=== PATIENT | female | born 1995 | race Caucasian/White ===

== ENCOUNTER 2016-09-26 11:45 | Emergency (ER) | payer OTHER ==
[~2016-09-26] VITALS: Ht 157.5 cm; Wt 44.6 kg
[2016-09-26 11:52] VITALS: TEMP 36.6; Ht 157.5 cm; Wt 44.6 kg
[2016-09-26] MEDS ORDERED: ALBUT/IPRATROP 3MG/0.5MG NEB 3 ML VIAL INH STA (12:29)
[2016-09-26] MEDS ORDERED: SODIUM CHLORIDE 0.9% 1000ML 1,000 ML IV STA (12:47)
[2016-09-26] MEDS ORDERED: NAPR1TAB9 PO (12:58)
--- NOTE | 2016-09-26 13:08 | EMERGENCY ROOM VISIT NOTE ---
History Report prepared by Romain: Asya Varghese Under the Supervision of: Dr. Roxanne Owusu M.D. First contact with patient: 12:39 Chief Complaint: SHORTNESS OF BREATH Stated Complaint: SOB,DIZZY History of Present Illness The patient is a 20 year old female who presents to the Emergency Room with complaints of persistent SOB for the past 2 weeks. She also reports coughing and wheezing. She has been using her boyfriend's nebulizer. She felt dizzy and lightheaded this morning. She vomited 10 times this morning over a period of 3 hours. She denies any fever or vaginal bleeding today. She has gained 2 lbs recently which is unusual for her. Her breasts have also been sore. Her last 2 periods have been short and light. She has dysmenorrhea and usually has long periods with a lot of cramping. These symptoms led her to have some suspicions of . She did an at home test 3 weeks ago which was negative. She has had an ectopic before when she was 16. She has a history of asthma and bronchitis. She is a smoker. Source of History: patient Onset: 2 weeks Position: other (respiratory) Quality: other (SOB) Timing: other (persistent) Associated Symptoms: + vomiting, No fevers Note: Pt reports lightheadedness, dizziness, weight gain. Pt denies vaginal bleeding. Review of Systems See HPI for pertinent positives & negatives. A total of 10 systems reviewed and were otherwise negative. Past Medical & Surgical Medical Problems: (1) Asthma (2) Scoliosis Surgical Problems: (1) S/P tonsillectomy and adenoidectomy (2) [place] teeth removed Family History Diabetes mellitus Social History Smoking Status: Current Every Day Smoker Alcohol Use: none Drug Use: none Marital Status: in relationship Housing Status: lives with significant other Occupation Status: employed Current/Historical Medications Scheduled Naproxen (Aleve), 220 MG PO UD Allergies Coded Allergies: Latex (Verified Allergy, Unknown, UNKNOWN, 09/26/16) Beason (Verified Allergy, Unknown, ANAPHYLAXIS, 09/26/16) Physical Exam Vital Signs Date Time Temp Pulse Resp B/P Pulse Ox O2 Delivery O2 Flow Rate FiO2 09/26/16 14:45 93 18 132/84 98 09/26/16 13:20 97 Room Air 09/26/16 13:18 97 Room Air 09/26/16 11:52 36.6 96 18 127/91 97 Room Air Physical Exam Vital signs reviewed. General: Well-appearing, thin, in no significant distress. HEENT: No scleral icterus, PERRLA, neck supple. Atraumatic. Cardiovascular: Regular rate and rhythm, no extra sounds. Pulmonary: Wheezing in the bilateral lung lennon, normal work of breathing. Abdomen: Soft, nontender, nondistended, positive bowel sounds. Musculoskeletal: Atraumatic, no peripheral edema. Neurologic: Patient awake alert and oriented x 3, full strength in all 4 extremities. Cranial nerves 2 through 12 grossly intact. Skin: Warm to touch, dry, no rash Medical Decision & Procedures ER Provider Diagnostic Interpretation: X-ray results as stated below per interpretation by me and the radiologist. Radiology results as stated below per my review and radiologist interpretation: CHEST ONE VIEW PORTABLE CLINICAL HISTORY: Shortness of breath. COMPARISON STUDY: Chest radiograph September 02, 2014. FINDINGS: Lung volumes are normal. There is no pneumothorax or pleural effusion. Cardiac size is normal. Mediastinal contours are normal. There is no evidence of pulmonary edema. IMPRESSION: No acute cardiopulmonary findings. Electronically signed by: Jean Marie Schroeder M.D. 09/26/2016 1:07 PM Dictated Date/Time: 09/26/2016 1:06 PM <14 WKS SINGLE ULTRASOUND CLINICAL HISTORY: , unsure of dates. Short of breath. Dizzy. COMPARISON STUDY: None. FINDINGS: The uterus measures 7.3 x 4.4 x 3.3 cm. Endometrial stripe measures 9 mm in thickness. No intrauterine gestational sac identified. The ovaries are normal in size and demonstrate normal color flow. Small amount of pelvic free fluid. There are 2 cysts within the left ovary. This includes a 2.5 cm simple cyst and a 2.4 cm complex cyst with internal echoes. This demonstrates complex fluid and internal septations suggestive of a hemorrhagic cyst. No additional adnexal masses identified. IMPRESSION: 1. No intrauterine gestational sac identified. 2. No adnexal masses. 3. Left ovarian cysts as described above. 4. Therefore, in the setting of a positive test this could represent an early intrauterine , nonvisualized ectopic , or recent spontaneous . Correlation with beta-hCG and follow-up pelvic ultrasound can be performed. Electronically signed by: Clarke Lee M.D. 09/26/2016 1:56 PM Dictated Date/Time: 09/26/2016 1:51 PM Laboratory Results 09/26/16 13:15 Red Blood Count 5.08, Mean Corpuscular Volume 89.8, Mean Corpuscular Hemoglobin 32.7, Mean Corpuscular Hemoglobin Concent 36.4, Mean Platelet Volume 9.4, Neutrophils (%) (Auto) 77.5, Lymphocytes (%) (Auto) 15.8, Monocytes (%) (Auto) 3.9, Eosinophils (%) (Auto) 2.3, Basophils (%) (Auto) 0.3, Neutrophils # (Auto) 9.30, Lymphocytes # (Auto) 1.90, Monocytes # (Auto) 0.47, Eosinophils # (Auto) 0.28, Basophils # (Auto) 0.04 09/26/16 13:15 Test 09/26/16 12:30 09/26/16 13:15 Urine Test POS (NEG) White Blood Count 12.01 K/uL (4.8-10.8) Red Blood Count 5.08 M/uL (4.2-5.4) Hemoglobin 16.6 g/dL (12.0-16.0) Hematocrit 45.6 % (37-47) Mean Corpuscular Volume 89.8 fL (80-100) Mean Corpuscular Hemoglobin 32.7 pg (25-34) Mean Corpuscular Hemoglobin Concent 36.4 g/dl (32-36) Platelet Count 301 K/uL (130-400) Mean Platelet Volume 9.4 fL (7.4-10.4) Neutrophils (%) (Auto) 77.5 % Lymphocytes (%) (Auto) 15.8 % Monocytes (%) (Auto) 3.9 % Eosinophils (%) (Auto) 2.3 % Basophils (%) (Auto) 0.3 % Neutrophils # (Auto) 9.30 K/uL (1.4-6.5) Lymphocytes # (Auto) 1.90 K/uL (1.2-3.4) Monocytes # (Auto) 0.47 K/uL (0.11-0.59) Eosinophils # (Auto) 0.28 K/uL (0-0.5) Basophils # (Auto) 0.04 K/uL (0-0.2) RDW Standard Deviation 41.0 fL (36.4-46.3) RDW Coefficient of Variation 12.4 % (11.5-14.5) Immature Granulocyte % (Auto) 0.2 % Immature Granulocyte # (Auto) 0.02 K/uL (0.00-0.02) Prothrombin Time 10.9 SECONDS (9.0-12.0) Prothromb Time International Ratio 1.0 (0.9-1.1) Activated Partial Thromboplast Time 31.1 SECONDS (21.0-31.0) Partial Thromboplastin Ratio 1.2 Anion Gap 9.0 mmol/L (3-11) Est Creatinine Clear Calc Drug Dose 82.4 ml/min Estimated GFR () 130.0 Estimated GFR (Non- 112.1 BUN/Creatinine Ratio 13.2 (10-20) Calcium Level 9.1 mg/dl (8.5-10.1) Total Bilirubin 0.9 mg/dl (0.2-1) Aspartate Amino Transf (AST/SGOT) 16 U/L (15-37) Alanine Aminotransferase (ALT/SGPT) 21 U/L (12-78) Alkaline Phosphatase 67 U/L (45-117) Total Protein 8.1 gm/dl (6.4-8.2) Albumin 4.8 gm/dl (3.4-5.0) Globulin 3.3 gm/dl (2.5-4.0) Albumin/Globulin Ratio 1.5 (0.9-2) Human Chorionic Gonadotropin, Quant 492 mIU/mL Laboratory results per my review. Medications Administered Medications (Trade) Dose Ordered Sig/Lilly Route Start Time Stop Time Status Last Admin Dose Admin Albuterol/ Ipratropium 3 ml 3 ml NOW STAT INH 09/26/16 12:29 09/26/16 12:32 DC 09/26/16 12:56 3 ML Sodium Chloride (Nss 1000ml) 1,000 ml @ 999 mls/hr Q1H1M STAT IV 09/26/16 12:47 09/26/16 13:47 DC 09/26/16 12:47 999 MLS/HR Albuterol (Ventolin Hfa Inhaler) 2 puffs NOW ONCE INH 09/26/16 15:15 09/26/16 15:16 DC 09/26/16 15:14 2 PUFFS ED Course 1244: Past medical records reviewed. The patient was evaluated in room A12B. A complete history and physical examination was performed. 1229: Duoneb 3 ml INH. 1247: NSS 1000 ml @ 999 mls/hr IV. 1508: Upon reevaluation, the patient appeared to have improvement of her symptoms. I discussed findings with her. She verbalized agreement of the treatment plan. She was discharged home. Medical Decision Differential diagnosis: Etiologies such as infections, reactive airway disease, pneumonia, pneumothorax , COPD, CHF, cardiac ischemia, pulmonary embolism, musculoskeletal, gastrointestinal, intrauterine , ectopic . IV access was obtained and laboratory work was drawn. The patient was hydrated with normal saline solution. Laboratory work indicates a positive test. Patient was feeling improved after IVF. US pelvis was performed and reveals no IUP. Beta quantitative HCG was performed and is 492. Pt was informed of the findings and will establish care LYUDMILA. She was advised of the symptoms of ectopic and asked to return immediately if these happen. Pt breathing was much improved after a duoneb tx. She was given an albuterol inhaler and asked to f/u with PCP this week if possible. Impression Primary Impression: Asthma exacerbation Additional Impression: Scribe Attestation The scribe's documentation has been prepared under my direction and personally reviewed by me in its entirety. I confirm that the note above accurately reflects all work, treatment, procedures, and medical decision making performed by me. Departure Information Dispostion Home / Self-Care Referrals No Doctor, Assigned (PCP) Forms HOME CARE DOCUMENTATION FORM, IMPORTANT VISIT INFORMATION Patient Instructions My [facility] Additional Instructions Diagnosis: Vomiting, , asthma exacerbation Albuterol 2 puffs every 4 hours as needed for wheezing, cough Drink plenty of clear fluids. 1 vitamin daily. Avoid alcohol. Follow-up with FOLLOW UP SPECIALIST as soon as possible to establish care. There is no intrauterine identified at this time. This may be because the is too early. This will need to be reevaluated by your OB /LPN INSTRUCTOR. Return to the emergency department for worsening of symptoms, pelvic pain, vaginal bleeding or any medical concerns. Problem Qualifiers
[2016-09-26 13:38] LABS: BASO % 0.3 %; BASO ABS # 0.04 K/uL (0-0.2); COMPLETE YES; EOS % 2.3 %; HEMATOCRIT 45.6 % (37-47); IG% 0.2 %; LYMPH % 15.8 %; MEAN CELL VOLUME 89.8 fL (80-100); MEAN CORPUSCULAR HEMOGLOBIN 32.7 pg (25-34); MEAN CORPUSCULAR HGB CONC 36.4 g/dl (32-36); MEAN PLATELET VOLUME 9.4 fL (7.4-10.4); MONO % 3.9 %; NEUT % 77.5 %; PLATELET COUNT 301 K/uL (130-400); RED BLOOD COUNT 5.08 M/uL (4.2-5.4); WHITE BLOOD COUNT 12.01 K/uL (4.8-10.8)
[2016-09-26 13:50] LABS: PARTIAL THROMBOPLASTIN RATIO 1.2; PROTHROMBIN TIME (PATIENT) 10.9 SECONDS (9.0-12.0)
--- NOTE | 2016-09-26 13:57 | DIAGNOSTIC IMAGING REPORT ---
<14 WKS SINGLE ULTRASOUND CLINICAL HISTORY: , unsure of dates. Short of breath. Dizzy. COMPARISON STUDY: None. FINDINGS: The uterus measures 7.3 x 4.4 x 3.3 cm. Endometrial stripe measures 9 mm in thickness. No intrauterine gestational sac identified. The ovaries are normal in size and demonstrate normal color flow. Small amount of pelvic free fluid. There are 2 cysts within the left ovary. This includes a 2.5 cm simple cyst and a 2.4 cm complex cyst with internal echoes. This demonstrates complex fluid and internal septations suggestive of a hemorrhagic cyst. No additional adnexal masses identified. IMPRESSION: 1. No intrauterine gestational sac identified. 2. No adnexal masses. 3. Left ovarian cysts as described above. 4. Therefore, in the setting of a positive test this could represent an early intrauterine , nonvisualized ectopic , or recent spontaneous . Correlation with beta-hCG and follow-up pelvic ultrasound can be performed. Electronically signed by: Clarke Lee M.D. 09/26/2016 1:56 PM Dictated Date/Time: 09/26/2016 1:51 PM
[2016-09-26 14:02] LABS: BUN/CREATININE RATIO 13.2 (10-20); CALCIUM 9.1 mg/dl (8.5-10.1); CREATININE 0.76 mg/dl (0.60-1.20); POTASSIUM 3.8 mmol/L (3.5-5.1)
[2016-09-26 14:04] LABS: ALB/GLOB RATIO 1.5 (0.9-2)
[2016-09-26 14:43] LABS: PREG INTERNAL NEGATIVE QC NEG CLEAR BACKGROUND; PREG INTERNAL POSITIVE QC POS CONTROL LINE
[2016-09-26 14:45] VITALS: BP 132/84; PULSE 93; O2SAT 98
[2016-09-26] MEDS ORDERED: ALBUTEROL HFA 8 GM INHALER INH ONE ×2 (15:15)
== END 2016-09-26 15:16 | disposition home or self-care (01) ==
LOC: C.EDB 11:46 → C.EDA 15:16
DX: O99.511 Diseases of the respiratory system complicating pregnancy, first trimester (principal); J45.901 Unspecified asthma with (acute) exacerbation; O99.331 Smoking (tobacco) complicating pregnancy, first trimester; F17.210 Nicotine dependence, cigarettes, uncomplicated; Z83.3 Family history of diabetes mellitus; Z3A.00 Weeks of gestation of pregnancy not specified

== ENCOUNTER 2016-10-08 14:35 | Emergency (ER) | payer OTHER ==
[~2016-10-08] VITALS: Ht 162.6 cm; Wt 42.4 kg
[~2016-10-08 14:35] MED LIST: NAPR1TAB9 PO
[2016-10-08 14:38] VITALS: TEMP 36.8; Ht 162.6 cm; Wt 42.4 kg
[2016-10-08] MEDS ORDERED: PRENTAB26 PO (15:20)
[2016-10-08] MEDS ORDERED: ALBUT/IPRATROP 3MG/0.5MG NEB 3 ML VIAL INH STA (15:28)
[2016-10-08 15:53] LABS: BASO % 0.2 %; BASO ABS # 0.02 K/uL (0-0.2); COMPLETE YES; EOS % 3.3 %; HEMATOCRIT 49.5 % (37-47); IG% 0.2 %; LYMPH % 21.3 %; LYMPH ABS # 2.39 K/uL (1.2-3.4); MEAN CELL VOLUME 90.5 fL (80-100); MEAN CORPUSCULAR HEMOGLOBIN 32.5 pg (25-34); MEAN PLATELET VOLUME 9.7 fL (7.4-10.4); MONO % 6.2 %; NEUT % 68.8 %; PLATELET COUNT 360 K/uL (130-400); RED BLOOD COUNT 5.47 M/uL (4.2-5.4); WHITE BLOOD COUNT 11.21 K/uL (4.8-10.8)
[2016-10-08 16:28] LABS: ALB/GLOB RATIO 1.3 (0.9-2); ALKALINE PHOSPHATASE 65 U/L (45-117); ALT/SGPT 23 U/L (12-78); BLOOD UREA NITROGEN 9 mg/dl (7-18); BUN/CREATININE RATIO 11.5 (10-20); CALCIUM 9.5 mg/dl (8.5-10.1); CARBON DIOXIDE 24 mmol/L (21-32); CHLORIDE 106 mmol/L (98-107); CREATININE 0.77 mg/dl (0.60-1.20); GLUCOSE 82 mg/dl (70-99); SODIUM 139 mmol/L (136-145)
--- NOTE | 2016-10-08 16:51 | DIAGNOSTIC IMAGING REPORT ---
CHEST 1 VW FRONT-NOT PORTABLE CLINICAL HISTORY: Respiratory distress COMPARISON STUDY: 09/26/2016 FINDINGS: The cardiac and mediastinal contours are normal. There is no evidence of focal pulmonary consolidation. There is no evidence of failure. No pleural effusions are visualized.[ IMPRESSION: No active disease in the chest. Electronically signed by: Gm Nash M.D. 10/08/2016 4:50 PM Dictated Date/Time: 10/08/2016 4:50 PM
[2016-10-08] MEDS ORDERED: VNTHFA/IN INH (17:01)
[2016-10-08 17:17] LABS: URINE APPEARANCE CLEAR (CLEAR); URINE BILIRUBIN NEG (NEG); URINE COLOR DK YELLOW; URINE NITRITE NEG (NEG); URINE PH 7.5 (4.5-7.5); URINE SPECIFIC GRAVITY 1.021 (1.000-1.030); UROBILINOGEN NEG (NEG)
[2016-10-08 17:27] LABS: MANUAL MICROSCOPIC REQUIRED? NO; REVIEW REQ? NO
[2016-10-08 17:47] VITALS: BP 119/86; PULSE 91; O2SAT 98
--- NOTE | 2016-10-08 23:45 | EMERGENCY ROOM VISIT NOTE ---
ED Visit Note First contact with patient: 14:51 CHIEF COMPLAINT: Cough and shortness of breath. HISTORY OF PRESENT ILLNESS: Ms. Kate is a 20-year-old white female who ambulates into the ED accompanied by female friend complaining of a cough and shortness of breath. It should be noted that the patient was seen in this emergency department on September 26 for an asthma exacerbation. At that time laboratory results showed that she was . She was encouraged to follow-up with her JIGGER OPERATOR and primary care provider but she reports that she just received her medical assistance card yesterday and has not been able to have any follow-up for her symptoms. Patient then goes on to report that the inhaler that she received at that visit she used in 2 days which she reports had 60 puffs of medication. She then reports that her boyfriend has albuterol and she took his inhaler and used that inhaler within the next 3 days which she reported at 120 puffs. And lastly she reports that she has still been having symptoms so she took his Symbicort inhaler and has been using that and over the last 3 days has had multiple daily uses of the medication. Patient reports that she has a near constant cough since being seen on the . She reports her cough is productive of a clearish sputum. She has not identified any aggravating or alleviating factors related to the cough. Associated with the cough she reports that intermittently she feels lightheaded after severe coughing episode and she develops left lateral rib pain. She also reports intermittently after severe coughing episode she feels slightly diaphoretic and hot but has not checked her temperature. She reports she continues to smoke but she reports she is down to 6 or 7 cigarettes a day from her normal one pack-a-day use. She denies headache, dizziness, lightheadedness, other upper respiratory tract symptoms, hemoptysis, palpitations, orthopnea, dependent edema, previous clots, claudication, recent surgery/inactivity/extended travel, chest pain, abdominal pain, nausea, vomiting, posttussive vomiting. REVIEW OF SYSTEMS: As noted above in History of Present Illness; all body systems are reviewed with the patient. PMH: As previously noted, bronchitis, depression, anxiety, status post tonsillectomy and wisdom teeth extraction. CURRENT MEDICATION: vitamins, albuterol. ALLERGIES TO MEDICATION: Latex. SOCIAL HISTORY: Patient is currently employed; she feels safe in her home environment; she admits to tobacco use and denies alcohol use. PHYSICAL EXAM: Vital Signs: Date Time Temp Pulse Resp B/P Pulse Ox O2 Delivery O2 Flow Rate FiO2 10/08/16 17:47 91 15 119/86 98 10/08/16 16:52 96 14 110/76 97 Room Air 10/08/16 14:38 36.8 111 20 114/71 98 Room Air GENERAL: 20-year-old white female in no acute distress, nontoxic-appearing, afebrile and hemodynamically stable. NEUROLOGICAL: Awake, alert and oriented 3. Answering questions appropriately and following commands. Normal gait. Good hand eye coordination. No focal motor or sensory deficits. SKIN: Warm, dry and pink. No skin eruptions noted. HEENT: Atraumatic and normocephalic. PERRLA. Sclerae white and conjunctiva pink without drainage. No nasal drainage. No erythema or tenderness over the frontal or maxillary sinuses. Oral cavity is moist and pink. Airway is patent. Uvula is midline and no abscesses are seen. No posterior pharyngeal erythema or edema. Normal voice. No JVD. Trachea midline. BACK: No tenderness over the cervical, thoracic or lumbar bony spines. No tenderness throughout the paraspinous musculature. No CVA tenderness. CHEST: Lung sounds diminished bilaterally in the bases with scattered wheezing in the bases. No rales or rhonchi. No increased respiratory effort or rate. No tenderness, bony deformity, bony crepitus or subcutaneous air throughout the bilateral thorax. HEART: Normal regular rate and rhythm. No murmurs, gallops or rubs. ABDOMEN: Flat, soft and nontender with positive bowel sounds in all quadrants. EXTREMITIES: Moves all extremities well on command and with purpose. All distal neurovascular statuses are intact and equal bilaterally. No dependent edema, calf tenderness or cords. EMERGENCY DEPARTMENT COURSE: Patient is assessed as noted above. Laboratory Testing: Test 10/08/16 15:43 10/08/16 16:30 Range/Units White Blood Count 11.21 4.8-10.8 K/uL Red Blood Count 5.47 4.2-5.4 M/uL Hemoglobin 17.8 12.0-16.0 g/dL Hematocrit 49.5 37-47 % Mean Corpuscular Volume 90.5 80-100 fL Mean Corpuscular Hemoglobin 32.5 25-34 pg Mean Corpuscular Hemoglobin Concent 36.0 32-36 g/dl Platelet Count 360 130-400 K/uL Mean Platelet Volume 9.7 7.4-10.4 fL Neutrophils (%) (Auto) 68.8 % Lymphocytes (%) (Auto) 21.3 % Monocytes (%) (Auto) 6.2 % Eosinophils (%) (Auto) 3.3 % Basophils (%) (Auto) 0.2 % Neutrophils # (Auto) 7.71 1.4-6.5 K/uL Lymphocytes # (Auto) 2.39 1.2-3.4 K/uL Monocytes # (Auto) 0.70 0.11-0.59 K/uL Eosinophils # (Auto) 0.37 0-0.5 K/uL Basophils # (Auto) 0.02 0-0.2 K/uL RDW Standard Deviation 41.4 36.4-46.3 fL RDW Coefficient of Variation 12.6 11.5-14.5 % Immature Granulocyte % (Auto) 0.2 % Immature Granulocyte # (Auto) 0.02 0.00-0.02 K/uL Sodium Level 139 136-145 mmol/L Potassium Level 3.5-5.1 mmol/L Chloride Level 106 98-107 mmol/L Carbon Dioxide Level 24 21-32 mmol/L Anion Gap 9.0 3-11 mmol/L Blood Urea Nitrogen 9 7-18 mg/dl Creatinine 0.77 0.60-1.20 mg/dl Est Creatinine Clear Calc Drug Dose 77.4 ml/min Estimated GFR () 127.9 Estimated GFR (Non- 110.4 BUN/Creatinine Ratio 11.5 10-20 Random Glucose 82 70-99 mg/dl Calcium Level 9.5 8.5-10.1 mg/dl Total Bilirubin 0.8 0.2-1 mg/dl Aspartate Amino Transf (AST/SGOT) 15-37 U/L Alanine Aminotransferase (ALT/SGPT) 23 12-78 U/L Alkaline Phosphatase 65 45-117 U/L Total Protein 8.2 6.4-8.2 gm/dl Albumin 4.7 3.4-5.0 gm/dl Globulin 3.5 2.5-4.0 gm/dl Albumin/Globulin Ratio 1.3 0.9-2 Urine Color DK YELLOW Urine Appearance CLEAR CLEAR Urine pH 7.5 4.5-7.5 Urine Specific [place] 1.021 1.000-1.030 Urine Protein NEG NEG Urine Glucose (UA) NEG NEG Urine Ketones TRACE NEG Urine Occult Blood NEG NEG Urine Nitrite NEG NEG Urine Bilirubin NEG NEG Urine Urobilinogen NEG NEG Urine Leukocyte Esterase NEG NEG Chest X-Rays: Were read by myself and the radiologist and shows no acute traits , effusions or pneumothorax. Normal heart silhouette and bony anatomy. This was compared to previous and no acute changes were noted. Patient was given an albuterol/Atrovent nebulizer breathing treatment. On reassessment after her treatment she had improved air movement in all lung lennon and resolution of wheezing. Patient's case was reviewed with Dr. Gunn; we agreed on diagnostic approach , treatment, disposition and plan. Patient was educated about komal's findings and instructed on her treatment plan; she verbalizes understanding and agreement with this plan. CLINICAL IMPRESSION: Acute asthma exacerbation. DIFFERENTIAL DIAGNOSIS: Initially I considered bronchitis, pneumonia, pulmonary embolism, asthma exacerbation and other causes. DISPOSITION: Patient discharged home in stable condition accompanied by female friends; prior to departure she reports that she was pain and symptom-free. PLAN: Patient was encouraged to stop smoking and stop using her boyfriend's medications. Patient was prescribed and the albuterol inhaler and was encouraged to use 2 puffs every 4 hours as needed for shortness of breath/wheezing. Case management was able to procure the patient a follow-up visit with the [facility] in [place] for this coming Friday. Patient was encouraged return the ED for worsening/uncontrolled cough, worsening /uncontrolled shortness of breath/wheezing, fevers, coughing up blood or any new /concerning symptoms.
--- NOTE | 2016-10-09 17:24 | Pharmacy Progress Note ---
ED Pharmacist Progress Note Date of Service: October 09, 2016. Outpatient pharmacy called. [place] not covered on insurance. Provided verbal authorization to substitute with [place]. Case discussed with Dr. Faulkner.
== END 2016-10-08 17:49 | disposition home or self-care (01) ==
LOC: C.EDB 14:37 → C.EDC 17:49
DX: O99.519 Diseases of the respiratory system complicating pregnancy, unspecified trimester (principal); J44.1 Chronic obstructive pulmonary disease with (acute) exacerbation; Z3A.00 Weeks of gestation of pregnancy not specified; F32.9 Major depressive disorder, single episode, unspecified; F41.9 Anxiety disorder, unspecified; Z79.899 Other long term (current) drug therapy; Z72.0 Tobacco use

== ENCOUNTER → 2016-11-06 | Outpatient (CLI) | payer OTHER ==
[~2016-11-06] MED LIST changes: -NAPR1TAB9 PO; +PRENTAB26 PO
[2016-11-06 15:12] LABS: URINE APPEARANCE CLOUDY (CLEAR); URINE BILIRUBIN NEG (NEG); URINE COLOR YELLOW; URINE EPITHELIAL CELL AUTO >30 /lpf (0-5); URINE NITRITE NEG (NEG); URINE PH 8.5 (4.5-7.5); URINE SPECIFIC GRAVITY 1.016 (1.000-1.030); UROBILINOGEN NEG (NEG)
[2016-11-06 15:17] LABS: MANUAL MICROSCOPIC REQUIRED? NO; REVIEW REQ? NO
== END | disposition home or self-care (01) ==
LOC: C.LABSPEC 13:59
PROVIDERS: ATTEND Obstetrics & Gynecology
DX: O09.10 Supervision of pregnancy with history of ectopic pregnancy, unspecified trimester (principal)

== ENCOUNTER → 2016-11-08 | Outpatient (CLI) | payer OTHER | END | disposition home or self-care (01) | LOC: C.LABSPEC 13:23 | PROVIDERS: ATTEND Obstetrics & Gynecology | DX: Z12.4 Encounter for screening for malignant neoplasm of cervix (principal); R87.612 Low grade squamous intraepithelial lesion on cytologic smear of cervix (LGSIL) ==

== ENCOUNTER → 2016-11-08 | Outpatient (CLI) | payer OTHER ==
[2016-11-08 12:15] LABS: THYROXINE (T4) 10.1 mcg/dl (4.5-10.9)
[2016-11-08 12:20] LABS: BASO % 0.3 %; BASO ABS # 0.03 K/uL (0-0.2); COMPLETE YES; EOS % 1.7 %; HEMATOCRIT 41.3 % (37-47); IG% 0.2 %; LYMPH % 21.4 %; MEAN CELL VOLUME 92.2 fL (80-100); MEAN CORPUSCULAR HGB CONC 35.8 g/dl (32-36); MEAN PLATELET VOLUME 9.8 fL (7.4-10.4); MONO % 6.3 %; NEUT % 70.1 %; PLATELET COUNT 293 K/uL (130-400); RED BLOOD COUNT 4.48 M/uL (4.2-5.4); WHITE BLOOD COUNT 11.69 K/uL (4.8-10.8)
[2016-11-11 11:29] LABS: CHLAMYDIA TRACH RNA*** NOT DETECTED (NOT DETECTED); GC (NEIS GONORRHOEAE)RNA** NOT DETECTED (NOT DETECTED)
== END | disposition home or self-care (01) ==
LOC: C.LAB1850 10:32
PROVIDERS: ATTEND Obstetrics & Gynecology
DX: O09.10 Supervision of pregnancy with history of ectopic pregnancy, unspecified trimester (principal)

== ENCOUNTER → 2016-12-20 | Outpatient (CLI) | payer OTHER ==
[2016-12-20 18:13] LABS: GTGD 50 Grams
[2016-12-24 04:19] LABS: AFP CONCENTRATION 31.1 NG/ML; AFP MULTIPLE OF MEDIAN 0.67; AFPTS GESTATIONAL AGE 16.7 WEEKS; AFPTS INSULIN DEP DIABETIC? NO; AFPTS MATERNAL WT 104 LBS; ALPHA-FETOPROTEIN RACE CAUCASIAN=W; HISTORY OF NTD NO; INHIBIN A 266 PG/ML; REPEAT SAMPLE? NO; hCG MULTIPLE OF MEDIAN 0.52
== END | disposition home or self-care (01) ==
LOC: C.LAB1850 14:32
PROVIDERS: ATTEND Obstetrics & Gynecology
DX: O09.10 Supervision of pregnancy with history of ectopic pregnancy, unspecified trimester (principal); Z3A.00 Weeks of gestation of pregnancy not specified; E03.9 Hypothyroidism, unspecified

== ENCOUNTER → 2016-12-25 | Outpatient (CLI) | payer OTHER | END | disposition home or self-care (01) | LOC: C.LABBFT 10:31 | PROVIDERS: ATTEND Internal Medicine | DX: E03.9 Hypothyroidism, unspecified (principal) ==

== ENCOUNTER → 2017-01-21 | Outpatient (CLI) | payer OTHER ==
[2017-01-21 17:34] LABS: RHEUMATOID FACTOR < 10.0 U/mL (0-15); TOTAL IRON BINDING CAPACITY 332 mcg/dl (250-450)
[2017-01-25 04:31] LABS: ANTI-CENTROMERE AB <1.0 NEG AI (<1.0 NEG); ANTI-SS-A <1.0 NEG AI (<1.0 NEG); ANTI-SS-B <1.0 NEG AI (<1.0 NEG); DNA ds CRITHIDIA NEGATIVE (NEGATIVE); HLA-B27** TC 528X NEGATIVE (NEGATIVE); Sm Antibody <1.0 NEG AI (<1.0 NEG)
== END | disposition home or self-care (01) ==
LOC: C.LAB1850 16:04
PROVIDERS: ATTEND Internal Medicine Rheumatology
DX: M54.5 Low back pain (principal); M46.1 Sacroiliitis, not elsewhere classified

== ENCOUNTER → 2017-02-14 | Outpatient (CLI) | payer OTHER ==
[2017-02-14 17:41] LABS: URINE APPEARANCE CLEAR (CLEAR); URINE BILIRUBIN NEG (NEG); URINE COLOR DK YELLOW; URINE EPITHELIAL CELL AUTO >30 /lpf (0-5); URINE NITRITE NEG (NEG); URINE PH 6.5 (4.5-7.5); URINE SPECIFIC GRAVITY 1.024 (1.000-1.030); UROBILINOGEN NEG (NEG)
[2017-02-14 17:42] LABS: MANUAL MICROSCOPIC REQUIRED? NO; REVIEW REQ? NO
== END | disposition home or self-care (01) ==
LOC: C.LAB1850 15:47
PROVIDERS: ATTEND Obstetrics & Gynecology
DX: R39.9 Unspecified symptoms and signs involving the genitourinary system (principal)

== ENCOUNTER → 2017-03-14 | Outpatient (CLI) | payer OTHER ==
[2017-03-14 16:10] LABS: URINE APPEARANCE CLEAR (CLEAR); URINE BILIRUBIN NEG (NEG); URINE COLOR YELLOW; URINE NITRITE NEG (NEG); URINE PH 8.5 (4.5-7.5); URINE SPECIFIC GRAVITY 1.015 (1.000-1.030); UROBILINOGEN NEG (NEG)
[2017-03-14 16:14] LABS: MANUAL MICROSCOPIC REQUIRED? NO; REVIEW REQ? NO
== END | disposition home or self-care (01) ==
LOC: C.LAB1850 12:40
PROVIDERS: ATTEND Obstetrics & Gynecology
DX: O99.282 Endocrine, nutritional and metabolic diseases complicating pregnancy, second trimester (principal); E03.9 Hypothyroidism, unspecified; Z3A.00 Weeks of gestation of pregnancy not specified

== ENCOUNTER → 2017-03-21 | Outpatient (CLI) | payer OTHER ==
[2017-03-21 16:57] LABS: GTGD 50 Grams
[2017-03-21 17:01] LABS: HEMATOCRIT 37.2 % (37-47)
== END | disposition home or self-care (01) ==
LOC: C.LAB1850 14:09
PROVIDERS: ATTEND Obstetrics & Gynecology
DX: Z34.02 Encounter for supervision of normal first pregnancy, second trimester (principal)

== ENCOUNTER → 2017-03-28 | Outpatient (CLI) | payer OTHER | END | disposition home or self-care (01) | LOC: C.LAB1850 09:08 | PROVIDERS: ATTEND Obstetrics & Gynecology | DX: O28.1 Abnormal biochemical finding on antenatal screening of mother (principal) ==

== ENCOUNTER 2017-04-27 15:42 | Outpatient (CLI) | payer OTHER ==
[2017-04-27] MEDS ORDERED: LACTATED RINGER'S 1000ML 500 ML IV ONE (16:51)
[2017-04-27] MEDS ORDERED: ONDANSETRON INJ 2 MG/ML 2 ML VIAL IV PRN (17:00)
== END 2017-04-27 18:00 | disposition home or self-care (01) ==
LOC: C.LD 15:42 → C.OPB 15:42
PROVIDERS: ATTEND Obstetrics & Gynecology
DX: O99.283 Endocrine, nutritional and metabolic diseases complicating pregnancy, third trimester (principal); E86.0 Dehydration; Z3A.35 35 weeks gestation of pregnancy

== ENCOUNTER → 2017-05-09 | Outpatient (CLI) | payer OTHER ==
[~2017-05-09] MED LIST changes: +LEVO50TA PO
[2017-05-09 14:40] LABS: URINE APPEARANCE CLEAR (CLEAR); URINE BILIRUBIN NEG (NEG); URINE COLOR DK YELLOW; URINE EPITHELIAL CELL AUTO >30 /lpf (0-5); URINE NITRITE NEG (NEG); URINE SPECIFIC GRAVITY 1.023 (1.000-1.030); UROBILINOGEN NEG (NEG)
[2017-05-09 14:43] LABS: MANUAL MICROSCOPIC REQUIRED? NO; REVIEW REQ? NO
== END | disposition home or self-care (01) ==
LOC: C.LABSPEC 13:48
PROVIDERS: ATTEND Obstetrics & Gynecology
DX: Z34.03 Encounter for supervision of normal first pregnancy, third trimester (principal); R39.9 Unspecified symptoms and signs involving the genitourinary system; Z3A.00 Weeks of gestation of pregnancy not specified

== ENCOUNTER 2017-05-16 18:22 | Outpatient (CLI) | payer OTHER ==
[~2017-05-16] VITALS: Ht 160 cm; Wt 66.6 kg
[~2017-05-16 18:22] MED LIST changes: -LEVO50TA PO
[2017-05-16 19:05] VITALS: Ht 160 cm; Wt 66.6 kg
[2017-05-16] MEDS ORDERED: LEVO50TA PO (21:25)
== END 2017-05-16 21:10 | disposition home or self-care (01) ==
LOC: C.LD 18:22 → C.OPB 18:22
PROVIDERS: ATTEND Obstetrics & Gynecology
DX: O62.9 Abnormality of forces of labor, unspecified (principal); Z3A.00 Weeks of gestation of pregnancy not specified

== ENCOUNTER 2017-05-25 11:30 | Inpatient (IN) | payer OTHER ==
[~2017-05-25] VITALS: Ht 162.6 cm; Wt 66.5 kg
[~2017-05-25 11:30] MED LIST changes: +LEVO50TA PO
[2017-05-25] MEDS ORDERED: LACTATED RINGER'S 1000ML 1,000 ML IV PRN (12:21)
[2017-05-25] MEDS ORDERED: NURSING VERBAL MED ORDER ONE (12:45)
[2017-05-25 12:57] LABS: HEMATOCRIT 38.1 % (37-47); MEAN CELL VOLUME 93.4 fL (80-100); MEAN CORPUSCULAR HEMOGLOBIN 32.1 pg (25-34); MEAN CORPUSCULAR HGB CONC 34.4 g/dl (32-36); MEAN PLATELET VOLUME 10.4 fL (7.4-10.4); PLATELET COUNT 266 K/uL (130-400); RED BLOOD COUNT 4.08 M/uL (4.2-5.4); WHITE BLOOD COUNT 20.46 K/uL (4.8-10.8)
[2017-05-25] MEDS ORDERED: BUTORPHANOL TARTRATE 1 MG/ML VIAL IV ONE (13:00)
[2017-05-25] MEDS: LACTATED RINGER'S 1000ML 1,000 ML IV SCH ×2 (13:23→14:43)
[2017-05-25] MEDS ORDERED: FENTANYL 2MCG/ML ROPIV 1.25MG/ML 100ML BAG EPI ONE (13:52)
[2017-05-25] MEDS ORDERED: BUPIVACAINE 0.25% 30 ML VIAL ONE (13:52)
[2017-05-25] MEDS ORDERED: EpHEDrine SULFATE INJ 50 MG/ML AMP ONE (13:52)
[2017-05-25] MEDS ORDERED: FENTANYL CITRATE INJ 50 MCG/1 ML 2 ML VIAL ONE (13:53)
[2017-05-25] MEDS ORDERED: LACTATED RINGER'S 1000ML 500 ML IV PRN (14:28)
[2017-05-25] MEDS ORDERED: NALOXONE HCL INJ 1 MG in SODIUM CHLORIDE 0.9% 1000ML 1,000 ML IV PRN ×4 (14:28)
[2017-05-25] MEDS ORDERED: DiphenhydrAMINE HCL 50 MG/ML VIAL IV PRN (14:30)
[2017-05-25] MEDS ORDERED: METOCLOPRAMIDE HCL INJ 20 MG in SODIUM CHLORIDE 0.9% 50ML 50 ML IV PRN (14:30)
[2017-05-25] MEDS ORDERED: NALBUPHINE HCL INJ 10 MG/ML AMP IV PRN (14:30)
[2017-05-25] MEDS ORDERED: NALOXONE HCL INJ 0.4 MG/1 ML VIAL/CARP IV PRN (14:30)
[2017-05-25] MEDS ORDERED: EpHEDrine SULFATE INJ 50 MG/ML AMP IV PRN (14:30)
[2017-05-25] MEDS ORDERED: ONDANSETRON INJ 2 MG/ML 2 ML VIAL IV PRN (14:30)
[2017-05-25] MEDS ORDERED: FENTANYL 2MCG/ML ROPIV 1.25MG/ML 100ML BAG EPI PRN (14:30)
[2017-05-25] MEDS ORDERED: PROMETHAZINE HCL INJ 25 MG in SODIUM CHLORIDE 0.9% 50ML 50 ML IV PRN (14:30)
[2017-05-25] MEDS ORDERED: OXYTOCIN 30 UNITS/500ML NSS IV ONE (14:56)
[2017-05-25 15:16] VITALS: Ht 162.6 cm; Wt 66.5 kg
[2017-05-25] MEDS ORDERED: OXYTOCIN INJ 20 UNITS in LACTATED RINGER'S 1000ML 1,000 ML IV SCH (15:34)
--- NOTE | 2017-05-25 15:42 | Vaginal Delivery Summary ---
Vaginal Delivery Summary Patient dilated to complete and pushed to deliver a viable male Apgars 8 and 9 via over second-degree perineal laceration. Mouth and nose bulb suctioned at the perineum. Shoulders and body delivered with ease. vigorous and crying at . Delayed cord clamping per patient's request that ended at 1 minute 9 seconds of life. Cord clamped and infant to maternal abdomen where the cord was doubly clamped and cut. Cord blood obtained. Laceration repaired in usual fashion with 3-0 Vicryl. Placenta delivered spontaneously but was not intact. Three-vessel cord was noted. Operators hand was used to sweep the uterus which did result in removal of the placental tissue. Additional sweep demonstrated no further products of conception. Hemostasis achieved with dilute Pitocin and uterine massage. Bladder drained under sterile conditions for 100 cc of urine. Cervix and sulci intact. Because of the uterus exploration 2, the patient will be given 3 doses of IV Kefzol. EBL 300 cc's. Mother and baby stable in recovery.
[2017-05-25] MEDS ORDERED: OXYCODONE/ACETAMINOPHEN 5-325 TAB PO PRN (15:45)
[2017-05-25] MEDS ORDERED: DIPHTHERIA/TETANUS/PERTUSSIS 0.5 ML SYR/VIAL IM. ONE (15:45)
[2017-05-25] MEDS ORDERED: SUPERCREAM 0.870 % 15GM JAR EXT PRN (15:45)
[2017-05-25] MEDS ORDERED: LANOLIN OINT EXT PRN ×2 (15:45)
[2017-05-25] MEDS ORDERED: OXYTOCIN 30 UNITS/500ML NSS IV PRN (15:45)
[2017-05-25] MEDS ORDERED: CEFAZOLIN IV 2,000 MG in DEXTROSE 5% 50ML 50 ML IV SCH (15:45)
[2017-05-25] MEDS ORDERED: BENZOCAINE 20% AER SPR 82.5 GM CAN EXT PRN (15:45)
[2017-05-25] MEDS ORDERED: HYDROCORTISONE ACETATE 25 MG SUPP PR PRN (15:45)
[2017-05-25] MEDS ORDERED: ACETAMINOPHEN 325 MG TAB PO PRN (15:45)
[2017-05-25] MEDS: CEFAZOLIN IV 2,000 MG in SYRINGE 0 ML IV SCH (16:58)
--- NOTE | 2017-05-25 17:43 | Anesthesia Procedure Note ---
Anesthesia Epidural Removal Nt Date & Time May 25, 2017 at 17:43 Vital Signs Pain Intensity: 0.0 Notes Mental Status: alert / awake / arousable, participated in evaluation Nausea / Vomiting: adequately controlled Pain: adequately controlled Airway Patency, RR, SpO2: stable & adequate BP & HR: stable & adequate Hydration State: stable & adequate Neuraxial Anesthesia: was administered Anesthetic Complications: no major complications apparent, pt satisfied with anesthetic care Epidural: removed without complications, with tip intact
[2017-05-25] MEDS: DOCUSATE SODIUM 100 MG CAP PO SCH (20:00)
[2017-05-25 20:30] VITALS: BP 124/77; PULSE 73; TEMP 37
[2017-05-25 23:30] VITALS: BP 134/86; PULSE 71; TEMP 37.3
[2017-05-25] MEDS ORDERED: NICOTINE 14 MG/24 HR TDSY TD ONE (23:30)
[2017-05-25] MEDS: IBUPROFEN 600 MG TAB PO PRN (23:52)
[2017-05-26] MEDS: CEFAZOLIN IV 2,000 MG in SYRINGE 0 ML IV SCH ×2 (03:39→12:43)
[2017-05-26] MEDS ORDERED: NURSING VERBAL MED ORDER ONE (04:00)
[2017-05-26] MEDS: LEVOTHYROXINE 50 MCG TAB PO SCH (07:41)
[2017-05-26] MEDS: DOCUSATE SODIUM 100 MG CAP PO SCH ×2 (07:41→20:28)
[2017-05-26 07:45] VITALS: BP 116/78; PULSE 76; TEMP 36.4; O2SAT 97
--- NOTE | 2017-05-26 07:48 | Progress Note ---
Subjective May 26, 2017. Subjective conversation w/ patient, physical exam Ambulation: ambulating normally Voiding: no voiding problems Diet Tolerance: Regular Diet Lochia: Small Feeding Type: Breast Feeding Pain: some cramps Objective Vital Signs Date Time Temp Pulse Resp B/P (MAP) Pulse Ox O2 Delivery O2 Flow Rate FiO2 05/25/17 23:30 Room Air 05/25/17 23:30 37.3 71 18 134/86 (102) Room Air 05/25/17 20:30 37.0 73 18 124/77 (93) Room Air 05/25/17 20:30 Room Air Physical Exam General Appearance: WELL-APPEARING, WD/WN, NO APPARENT DISTRESS Respiratory/Chest: lungs clear Cardiovascular: regular rate, rhythm Abdomen: non tender, soft Fundus: Firm, Relation to Umbilicus (2 down) Extremities: non-tender Laboratory Results Last 24 Hours Test 05/25/17 12:44 White Blood Count 20.46 K/uL Red Blood Count 4.08 M/uL Hemoglobin 13.1 g/dL Hematocrit 38.1 % Mean Corpuscular Volume 93.4 fL Mean Corpuscular Hemoglobin 32.1 pg Mean Corpuscular Hemoglobin Concent 34.4 g/dl RDW Standard Deviation 44.0 fL RDW Coefficient of Variation 13.1 % Platelet Count 266 K/uL Mean Platelet Volume 10.4 fL Assessment and Plan Problem List Medical Problems: (1) Status: Acute (2) Vomiting affecting Status: Acute Post- Day#: 1 Continue Routine Care: stable, routine care.
[2017-05-26] MEDS: IBUPROFEN 600 MG TAB PO PRN ×2 (08:32→20:28)
[2017-05-26 12:45] VITALS: BP 138/80; PULSE 99; TEMP 36.9; O2SAT 97
[2017-05-26 16:00] VITALS: BP 126/80; PULSE 82; TEMP 37.3
--- NOTE | 2017-05-26 19:23 | Discharge Instructions ---
Discharge Instructions Date of Service May 26, 2017. Admission Reason for Admission: R/O Labor Discharge Discharge Diagnosis / Problem: normal delivery Discharge Goals Goal(s): Routine recovery after delivery Medications Continue Dispensed Medications: supercream, dermaplast, tucks, lansinoh Activity Recommendations Activity Limitations: per Instructions/Follow-up section . Instructions / Follow-Up Instructions / Follow-Up ACTIVITY RECOMMENDATIONS: * Gradual return to full activity over the next 2-3 weeks. * No lifting - nothing heavier than baby over the next 2-3 weeks. * Do not engage in vigorous exercise, sexual activity or sports until cleared by your physician. * Do not drive or operate any motorized equipment until cleared by your physician. * You may shower/bathe daily. MEDICATIONS: For discomfort or pain, you may use Acetaminophen (Tylenol), Ibuprofen (Advil), or Naproxen (Aleve) following the package directions. For constipation you may use Colace following the package directions. BREAST CARE: If you are not breast feeding: * Wear a supportive bra 24 hours a day for one to two weeks. * Avoid stimulating your breasts and nipples as much as possible during the first few weeks after delivery. * When taking a shower, have the warm water hit your back, not breasts. * When your breasts feel full, apply ice packs. Usually three to four times a day helps ease the discomfort. * Take a mild pain medication (Tylenol / Motrin) when you are uncomfortable. If breast feeding: * Use breast milk to lubricate nipples. Lansinoh cream may be used for sore nipples. You do not need to remove cream prior to breast feeding. If using a different brand of cream, check the label for directions regarding removal of cream prior to nursing. * Wear a supportive bra. * If having problems with breasts or breast feeding, call a [employer] ebs consultant or your health care provider. EPISIOTOMY CARE: After delivery, if you have an episiotomy (stitches), the following steps will ease discomfort and aid healing. * For the first 24 hours after delivery, place ice packs next to your episiotomy to help reduce swelling. * After the first 24 hour-period, sitz baths, either portable or in the tub, are suggested. A shower with a shower arm sprayed over the episiotomy may be comforting. * Lina care should be done after each voiding and bowel movement. Squirt warm water from a plastic bottle over the perineum (region of the body between the anus and urinary opening) and pat dry. * Use Dermoplast to ease discomfort. Shake container. Allison directly over the episiotomy. Place a Tucks on a clean sanitary pad next to your episiotomy. SPECIAL CARE INSTRUCTIONS: When you are discharged from the hospital, it is important for you to follow the instructions listed below: * During the first week at home, you should be able to care for yourself and your baby. In addition, the usual light household activities are encouraged. * Limit your activities to the way you feel. Do not try to clean the house or move furniture. Be sensible. * If you actively engage in sports and have done so up until the time of your delivery, you may resume these activities as soon as you feel able. This may take up to one month or even longer. Use good judgment. * Continue to take your vitamins for at least six weeks after the of your baby. * Your diet need not be limited unless you were on a special diet before your delivery. Breast-feeding mothers need around 2500 calories per day and at least 64-80 ounces of fluid per day (8 to 10 glasses). * You should eat foods from the four major food groups. Crash diets or fad diets are to be avoided. Eating lean meats, fresh fruits and vegetables, low-fat dairy products, high fiber foods and a regular exercise program, will help you get back to your pre- weight without putting your health at risk. * Constipation is sometimes a problem after delivery. Take a mild laxative as needed. If breast feeding, Milk of Magnesia is acceptable to use. You may use a suppository or Fleets enema if no episiotomy. * A daily shower or tub bath is suggested. Be sure to thoroughly and gently dry the perineum. * A bloody vaginal discharge will usually continue until around four weeks post . A small amount of bleeding may continue for as long as six weeks. Vaginal discharge changes from the bright red bleeding after delivery to pink then brownish and finally yellowish-pink before becoming white and disappearing. * Bleeding may increase with activity. Your first period may come in 4-8 weeks. If you are breast feeding, your period may be delayed even longer. * [place] (sex) can begin whenever both you and your partner feel comfortable and do not have any form of genital infection. It is recommended that you wait at least six weeks for internal and external healing to occur. If you have questions, please talk to your health care practitioner. A condom should be used to prevent infection and . * Foreplay, gentle intercourse and lubrication is very important the first several times to prevent pain. A water-based lubricant such as K-Y jelly or Astroglide may be used. * If you have RH negative blood and your baby is RH positive, you will receive RHOGAM by injection prior to discharge. The nurse will give you a card to keep with you that has the date and place that you received RHOGAM after delivery. * During your care, you had a Rubella screen done to check for the presence of rubella antibodies in your blood. If your test was negative, you will receive a Rubella vaccine prior to discharge. This vaccine may cause a fever, soreness at the injection site and flu-like symptoms. If these symptoms persist, notify your health care practitioner. is not advised for one month after a Rubella vaccine. * Verbalizes understanding of car seat law as reviewed with patient nursing. * Car Seat hand-out given and reviewed with patient by nursing. * Shaken baby information reviewed with patient by nursing. Call you doctor if: * Heavy bleeding (saturating several pads an hour) or passing clots the size of your fist. * A fever >101 degrees F (38.3 degrees C) on two occasions four hours apart and /or chills. * Unusual pain in the pelvic or vaginal areas. * "Baby Blues" lasting longer than two weeks. If you have any questions or concerns, call your health care practitioner at . FOLLOW UP VISIT: * Please call the office at to schedule a 6 week examination. It is important you keep this appointment. It is important for you to make arrangements for either yearly or twice yearly check-ups thereafter. Current Hospital Diet Patient's current hospital diet: Regular OB Diet Discharge Diet Recommended Diet: Regular OB Diet Pending Studies Studies pending at discharge: no Medical Emergencies . Who to Call and When: Medical Emergencies: If at any time you feel your situation is an emergency, please call [phone] immediately. . Non-Emergent Contact Non-Emergency issues call your: Internal Grinding Machine Operator . . "Provider Documentation" section prepared by Deneen Strong. . VTE Core Measure Inpt VTE Proph given/why not?: Treatment not indicated
[2017-05-27 00:20] VITALS: BP 122/80; PULSE 77; TEMP 36.6
[2017-05-27] MEDS ORDERED: NICOTINE 14 MG/24 HR TDSY TD STA (01:14)
[2017-05-27] MEDS ORDERED: NURSING VERBAL MED ORDER ONE (01:15)
[2017-05-27] MEDS: LEVOTHYROXINE 50 MCG TAB PO SCH (07:20)
[2017-05-27 07:23] VITALS: BP 115/76; PULSE 74; TEMP 37; O2SAT 97
--- NOTE | 2017-05-27 07:47 | OB/GYN Progress Note ---
HOME TEACHING GRADES 9 THRU 12 TEACHER Progress Note Date of Service May 27, 2017. Subjective conversation w/ patient, physical exam Ambulation: ambulating normally Voiding: no voiding problems Passing Gas: Yes Diet Tolerance: Regular Diet Feeding Type: Breast Feeding Pain: moderate, well controlled Review of Systems Constitutional: No fever, No chills, No sweats, No fatigue, No problem reported Abdomen: No pain, No nausea, No vomiting Female : No dysuria, No urinary frequency, No abnormal vaginal bleeding, No vaginal discharge Objective Vital Signs Date Time Temp Pulse Resp B/P (MAP) Pulse Ox O2 Delivery O2 Flow Rate FiO2 05/27/17 00:20 Room Air 05/27/17 00:20 36.6 77 20 122/80 (94) Room Air 05/26/17 16:00 Room Air 05/26/17 16:00 37.3 82 20 126/80 (95) Room Air 05/26/17 12:45 36.9 99 16 138/80 (99) 97 Room Air 05/26/17 07:45 Room Air 05/26/17 07:45 36.4 76 16 116/78 (91) 97 Room Air Physical Exam General Appearance: WELL-APPEARING, WD/WN, NO APPARENT DISTRESS Fundus: Firm, Non-Tender Assessment and Plan Post- Day Number: 1 Continue Routine Care: stable, routine care Resident Physician Supervision Note: I was present with Dr. Julio Cesar Limon during the history and exam. I discussed the case with the resident and agree with the findings and plan as documented in the note. Any exceptions or clarifications are listed here: continue current care plan. Discharge to home follow up in 6 weeks or PRN Documented By: Deneen Strong
[2017-05-27] MEDS ORDERED: BENZOCAINE 20% AER SPR 82.5 GM CAN EXT PRN (08:00)
[2017-05-27] MEDS: DOCUSATE SODIUM 100 MG CAP PO SCH (08:24)
[2017-05-27 11:56] VITALS: BP_DIAS 76; PULSE 74; TEMP 37
== END 2017-05-27 12:35 | disposition home or self-care (01) | DRG 775 ==
LOC: C.OPB 11:30 → C.LD 11:31 → C.OPB 12:23 → C.OBG 19:50
PROVIDERS: ADMIT Obstetrics & Gynecology; ATTEND Obstetrics & Gynecology
PROC: 0KQM0ZZ Repair Perineum Muscle, Open Approach (ICD-10-PCS; principal; 2017-05-25)
PROC: 10E0XZZ Delivery of Products of Conception, External Approach (ICD-10-PCS; principal; 2017-05-25)
DX: O70.1 Second degree perineal laceration during delivery (principal); O99.284 Endocrine, nutritional and metabolic diseases complicating childbirth; E03.9 Hypothyroidism, unspecified; O99.52 Diseases of the respiratory system complicating childbirth; J45.909 Unspecified asthma, uncomplicated; Z3A.39 39 weeks gestation of pregnancy; Z37.0 Single live birth; Z87.42 Personal history of other diseases of the female genital tract

== ENCOUNTER 2019-05-12 02:27 | Inpatient (IN) ==
[2019-05-12] MEDS ORDERED: OXYTOCIN 30 UNITS/500 ML BAG IV PRN ×2 (03:05→03:38)
[2019-05-12] MEDS ORDERED: LACTATED RINGER'S 1,000 ML IV PRN (03:05)
[2019-05-12] MEDS ORDERED: ePHEDrine sulfate 50 MG/ML AMP ONE (03:13)
[2019-05-12] MEDS ORDERED: BUPIVACAINE 0.25% 30 ML VIAL ONE (03:13)
[2019-05-12] MEDS ORDERED: fentaNYL citrate 100 MCG/2 ML VIAL ONE (03:13)
[2019-05-12] MEDS ORDERED: fentaNYL 2MCG/ML ROPIV 1.25MG/ML 100 ML BAG EPI ONE (03:14)
[2019-05-12] MEDS ORDERED: ALBUTEROL HFA 8 GM INHALER INH PRN (03:38)
[2019-05-12] MEDS ORDERED: HYDROCORTISONE ACETATE 25 MG SUPP PR PRN (03:38)
[2019-05-12] MEDS ORDERED: BENZOCAINE 20% AER SPR 82.5 GM CAN EXT PRN (03:38)
[2019-05-12] MEDS ORDERED: SUPERCREAM 0.870% 15 GM JAR EXT PRN (03:38)
[2019-05-12] MEDS ORDERED: ACETAMINOPHEN 325 MG TAB PO PRN (03:38)
[2019-05-12] MEDS ORDERED: OXYCODONE/ACETAMINOPHEN 5mg/325mg TAB PO PRN (03:38)
[2019-05-12] MEDS ORDERED: OXYTOCIN 20 UNITS in LACTATED RINGER'S 1,000 ML IV SCH (03:45)
--- NOTE | 2019-05-12 03:49 | Delivery Summary ---
Vaginal Delivery Summary Date of Service May 12, 2019 23yo at 37+wks james presented to L&D after calling and reporting gross SROM. She denied ctx on phone, fluid was clear and she denied ctx. Time of srom was 1am. On arrival in L&D was noted to have about every 6min ctx and was 6cm. Shortly after that time I was called to attend delivery. Per nurse pt was c/c/+2 station. Patient pushed over 1-2 ctx to deliver viable male apgars 9,9 via over vaginal laceration. After delivery of cephalic, shoulders and body delivered with ease with further maternal expulsive efforts. Infant vigorous at and mouth and nose bulb suctioned. Cord clamped at 30sec of life and to maternal abdomen where cord doubly clamped and cut. Placenta delivered spontaneously and intact, 3 VC. Hemostasis achieved with dilute pit and uterine massage. Cervix and sulci intact. Small vaginal laceration reapproximated with interrupted suture of 3-0 vicryl after 1% local lidocaine anesthesia. Small perineal skin separation was hemostatic and not repaired. EBL 300cc. Mother and baby stable in recovery. PNC c/b 1. h/o hypothyroidism, no meds 2. smoker 3. spina bifida occulta 4. chronic back pain 5. ankylosing spondylitis 6. LGSIL pap , colpo done, needs pap and colpo pp PNL rh pos, ri, gbs neg OBH: x 1 GYNH: pap as noted above. no stds PMH: h/o hypothyroidism, asthma, h/o bipolar disorder PSH: tonsillectomy, wisdom teeth extraction SH: +tobacco, no etoh no drugs FH: no radhika anom or mr. other than spina bifida occulta in pt. Allg: oranges, latex Meds: albuterol, zofran, pnv PE: af vss Abd soft ff at umbilicus, nt Ext: no edema A/ , precipitous delivery. P/ Routine care. Rh pos. [facility] Vaginal Delivery Charge Vaginal Delivery Codes: 23156 global code for the antepartum, delivery, and post-
[2019-05-12] MEDS ORDERED: DIPHTHERIA/TETANUS/PERTUSSIS 0.5 ML SYR/VIAL IM ONE (04:03)
[2019-05-12 04:20] LABS: Hematocrit (blood only) 41.7 % (37-47); Hemoglobin 14.4 g/dL (12.0-16.0); Mean Corpuscular Hemoglobin 32.4 pg (25-34); Mean Corpuscular Volume 93.9 fL (80-100); Platelet Count 222 K/uL (130-400); RDW Coefficient of Variation 13.4 % (11.5-14.5); RDW Standard Deviation 45.6 fL (36.4-46.3); Red Blood Count 4.44 M/uL (4.2-5.4); White Blood Count 17.43 K/uL (4.8-10.8)
[2019-05-12 04:26] LABS: Mean Corpuscular Hgb Conc 34.5 g/dL (32-36)
[2019-05-12] MEDS: IBUPROFEN 600 MG TAB PO PRN ×3 (04:30→19:50)
[2019-05-12] MEDS: DOCUSATE SODIUM 100 MG CAP PO SCH ×2 (07:37→19:51)
[2019-05-12] MEDS ORDERED: NICOTINE 7 MG/24 HR TDSY TD SCH (09:00)
[2019-05-12] MEDS ORDERED: NICOTINE 14 MG/24 HR PATCH TD SCH (09:00)
[2019-05-13] MEDS: IBUPROFEN 600 MG TAB PO PRN (05:29)
--- NOTE | 2019-05-13 06:00 | Obstetrical Progress Note ---
Date of Service <Blake Navarro MD - Last Filed: 05/13/19 06:32> May 13, 2019 Assessment & Plan <Blake Navarro MD - Last Filed: 05/13/19 06:32> (1) : PPD#1 doing well, ambulating well, tolerating meals continue routine care until discharge after discharge will have follow-up in 6 weeks Subjective <Blake Navarro MD - Last Filed: 05/13/19 06:32> Ms. Kate is a 23 y/o female ; PPD #1 following spontaneous vaginal delivery at 37+ weeks; doing well this morning; having minimal abdominal cramping/pain; voiding well; tolerating meals overnight; and able to ambulate some; some persistent spotting with intermittent improvement this morning. Review of Systems Constitutional: denies fever; chills; sweats; headache Respiratory: denies shortness of breath, difficulty breathing Cardiac: denies chest pain; palpitations; chest pressure Breast: denies breast pain : denies dysuria Physical Exam <Blake Navarro MD - Last Filed: 05/13/19 06:32> General: alert; oriented; no acute distress Cardiac: RRR; no m/g/r Respiratory: CTAB a/p; no wheezes/rales/rhonchi; no increased work of breathing; symmetrical chest rise; no respiratory distress Abdomen: soft; NT/ND; bowel sounds positive Uterus: uterine fundus firm; palpable 3cm below umbilicus Lower extrem: no lower extremity edema or swelling; no deep calf pain; Gaby's sign negative b/l Results & Data <Blake Navarro MD - Last Filed: 05/13/19 06:32> Vital Signs (Past 12 Hours) Vital Signs Temp Pulse Resp BP Pulse Ox 05/12/19 23:20 36.6 C 81 16 114/78 98 05/12/19 20:40 36.5 C 80 16 119/78 98 Medications Administered Current Inpatient Medications Acetaminophen (Tylenol) 650 mg PO Q6H PRN PRN Reason: Pain/GALLARDO/Fever Stop: 06/11/19 03:37 Albuterol (Ventolin Hfa) 1 puffs INH Q6H PRN PRN Reason: shortness of breath or wheezing Stop: 06/11/19 03:37 Benzocaine (Dermoplast Pain Relieving [place]) 1 appln EXT PRN PRN PRN Reason: Perineal Discomfort Stop: 06/11/19 03:37 Last Admin: 05/12/19 07:37 Dose: 82.5 appln Documented by: Cocaine HCl (Supercream 0.870%) 1 gm EXT BID PRN PRN Reason: Hemorrhoidal Inflammation Stop: 05/26/19 03:37 Docusate Sodium (Colace) 100 mg PO DAILY@08,21 [facility] Stop: 06/11/19 07:59 Last Admin: 05/12/19 19:51 Dose: 100 mg Documented by: Hydrocortisone (Anusol Hc) 25 mg ND BID PRN PRN Reason: Hemorrhoidal Inflammation Stop: 06/11/19 03:37 Oxytocin (Pitocin) 30 units in 500 mls @ 333.333 mls/hr IV .Q1H30M PRN; Protocol PRN Reason: Bleeding Control Stop: 06/11/19 03:37 Oxytocin 20 units/ Lactated (Ringer's) 1,002 mls @ 125 mls/hr IV .Q8H1M [facility] Stop: 06/11/19 03:44 Last Admin: 05/12/19 05:32 Dose: 125 mls/hr Documented by: Ibuprofen (Motrin) 600 mg PO Q4H PRN PRN Reason: Pain/GALLARDO/Cramping/Fever Stop: 06/11/19 03:37 Last Admin: 05/13/19 05:29 Dose: 600 mg Documented by: Miscellaneous (Remove Nicoderm Patch) 1 ea N/A DAILY@0859 [facility] Stop: 06/12/19 08:58 Nicotine (Nicoderm Cq) 14 mg TD QAM [facility] Stop: 06/11/19 08:59 Last Admin: 05/12/19 09:07 Dose: 14 mg Documented by: Oxycodone/Acetaminophen (Percocet 5mg/325mg) 1 tab PO Q4H PRN PRN Reason: Pain not relieved by... Stop: 05/26/19 03:37 <Kimberly Parr MD - Last Filed: 05/13/19 07:45> Co-Signing Physician Notes I have reviewed the resident's note and examined the patient myself, and agree with the note above. Resident Activity Tracking <Blake Navarro MD - Last Filed: 05/13/19 06:32> Resident Involvement: Resident Care Provided Care Provided: OB Delivery
[2019-05-13] MEDS: DOCUSATE SODIUM 100 MG CAP PO SCH (09:01)
== END 2019-05-13 12:25 | disposition home or self-care (01) | DRG 807 ==
LOC: OPB 02:27 → 4S1 02:31 → 4S2 06:33